=== PATIENT | female | born 1970 | race Caucasian/White ===

== ENCOUNTER 2017-03-18 17:45 | Emergency (ER) | payer BC ==
[2017-03-18 17:53] VITALS: BP 136/85
[2017-03-18] MEDS ORDERED: DIPHTH,PERTUSS(ACELL),TET VAC 0.5 ML VIAL IM ONE (17:59)
[2017-03-18] MEDS ORDERED: IBUPROFEN 400 MG TABLET PO ONE (17:59)
[2017-03-18] MEDS ORDERED: SILVER SULFADIAZINE 50 APPL JAR TP ONE (18:00)
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
== END 2017-03-18 18:30 | disposition home or self-care (01) ==
LOC: ER 17:45
DX: T22.222A Burn of second degree of left elbow, initial encounter (principal); T31.0 Burns involving less than 10% of body surface; X15.8XXA Contact with other hot household appliances, initial encounter; Y93.G3 Activity, cooking and baking; Y92.213 High school as the place of occurrence of the external cause; Y99.2 Volunteer activity; Z23 Encounter for immunization